=== PATIENT | male | born 1965 | race Two or more races ===

== ENCOUNTER → 2017-08-23 | Emergency (ER) | payer OTHER ==
[~2017-08-23] VITALS: Ht 172.7 cm; Wt 98.4 kg
[~2017-08-23] MED LIST: COZAAR25 MG; DICLOFENAC POTA50 MG PO; LOSARTAN POTASS25 MG PO; MEDROLPACK PO
== END | disposition home or self-care (01) ==
LOC: ER 06:41
DX: M65.88 Other synovitis and tenosynovitis, other site (principal)